=== PATIENT | female | born 1945 | race Hispanic/Latino ===

== ENCOUNTER 2025-02-04 07:46 | Emergency (ER) | payer BC, MEDICARE ==
[2025-02-04] MEDS ORDERED: Acetaminophen 325 MG TAB ONE (09:03)
== END 2025-02-04 09:19 | disposition home or self-care (01) ==
LOC: NAV ERS 07:46
DX: U07.1 COVID-19 (principal); I25.2 Old myocardial infarction; Z79.82 Long term (current) use of aspirin; Z79.02 Long term (current) use of antithrombotics/antiplatelets
CPT/HCPCS: 87428; Q0162; 99284